=== PATIENT | male | born 1990 | race Caucasian/White ===

== ENCOUNTER 2024-08-14 00:30 | Day surgery (SDC) | payer OTHER, SELFPAY ==
--- NOTE | 2024-08-01 07:22 | P.HP_ITS ---
History of Present Illness History of Present Illness Consent: Risks, benefits, and alternatives have been discussed and questions answered. Patient agrees to proceed with procedure. Chief complaint: Urethral Stricture, Encounter for Vasectomy Narrative: Jose A Roberts is a 33 year old male with longstanding bladder outlet obstructive voiding symptoms refractory to alpha blockers. This is highly suggestive of urethral stricture disease. He opted to forego cystoscopy in the office with plans for cystoscopy and simultaneous urethral dilatation under anesthesia. He also desires vasectomy at the same time. He is aware the risks of these procedures including, but not limited to, recurrent urethral stricture, scrotal hematoma, potential for vasectomy failure. Review of Systems Review of Systems: All systems reviewed & are unremarkable except as noted in HPI and below Meds Home Medications and Allergies Allergies Allergy/AdvReac Type Severity Reaction Status Date / Time No Known Allergies Allergy Mild Verified 07/04/08 14:38 Exam Const: General: no acute distress Resp: Effort & Inspection: normal respiratory effort GI: Inspection: non-distended GI Palp: No abdominal tenderness and No Guarding due to palpation present (GI) Auscultation: normal bowel sounds Assessment and Plan Assessment and plan (1) Encounter for vasectomy: Code(s): Z30.2 - Encounter for sterilization Status: Acute (2) Urethral stricture: Code(s): N35.919 - Unspecified urethral stricture, male, unspecified site Status: Acute Assessment and Plan: * Cystoscopy, possible urethral dilatation * Bilateral vasectomy
[2024-08-06 10:36] VITALS: BMI 32.3
--- NOTE | 2024-08-06 10:36 | PC.NURSE ---
Report to the Outpatient Waiting Room, entrance under the green pavilion located off [facility], at time _0830_ on date _[id number]_. Planned Procedure Time: _1030_.? Time changes happen often and if your time is changed the preop area will call you the afternoon before. - You and your visitor will be asked to self-screen and do not enter if you have any COVID symptoms. Please call surgeon if you need to reschedule. - A mask is optional within the hospital at this time. Patients may have clear liquids (water, carbonated beverages, clear teas, apple juice) until 3 hours prior to surgery with a maximum of 20 ounces. - No food from midnight until time of surgery and no smoking. This includes no chewing gum, candy or mints. Take only the following medications with a SIP of water on the morning of surgery: ____None DO NOT STOP ANY OF YOUR OTHER PRESCRIPTION MEDICATIONS PRIOR TO SURGERY EXCEPT THE FOLLOWING Medications to discontinue per physician ____None Date to take last dose Please no make-up, nail german, hairspray, perfume, deodorant, or body powder the day of surgery.? No jewelry (including any body piercings) or valuables the day of surgery, leave them at home.? Please take a shower or bath the night before, or the morning of, surgery with an antibacterial soap.? Wear comfortable, loose fitting clothing. - Jewelry must be removed prior to entering the operating room.? Rings and piercings that are not removed may be cut off. - The hospital will not accept responsibility for valuables.? - Please leave all valuables, including medications, at home the day of surgery. If you are going home after surgery, a licensed delivery motorcycle driver must drive you home.? - NO public transportation without another adult if you receive anesthesia. - We recommend that an adult stay with you for 24 hours following discharge. - We also recommend that you do not drive, make important decision, drink alcoholic beverages, or take any drugs that were not prescribed by your health care provider for at least 24 hours after your discharge time. Follow any additional instructions given to you from your surgeon. Telephone instructions given to _Klever__and asked if any additional questions and then verbalized understanding. Patient advised to call surgeon office or pre surgery nurse liaison [phone] if any additional questions.
[2024-08-14] VITALS (10 sets, daily range): BP systolic 111–142; BP diastolic 66–100; PULSE 62–85; RESP 12–16; TEMP 36.3–36.5; O2SAT 98–100
--- NOTE | 2024-08-14 06:06 | WPDHPUPDATE1 ---
History and Physical Update Update Date/Time: 08/14/24 06:06 History and Physical has been reviewed, including an updated exam of the patient. There are NO changes in the patient's condition. Risks, benefits, and alternatives have been discussed and questions answered. Patient agrees to proceed with procedure.
--- NOTE | 2024-08-14 09:18 | P.PNAN_ITS ---
Anes - Initial Pre Proc Eval Procedure: Operation Date: 08/14/24 10:30 Proposed Procedures p Cystoscopy, Urethral Dilatation - Tyrone Corona MD s Bilateral Vasectomy - Tyrone Corona MD Date/Time: 08/14/24 09:18 Surgeon: Tyrone Corona MD Pre Op Diagnosis: Urethral Stricture, Encounter for Vasectomy Patient Data Age: 33 Gender: M Height: 1.78 m Weight: 102.3 kg Allergies Allergy/AdvReac Type Severity Reaction Status Date / Time No Known Allergies Allergy Mild Verified 08/14/24 08:52 Home Medications ?Medication ?Instructions ?Recorded ?Confirmed ?Type testosterone cypionate 200 mg/mL 200 mg IM WEEKLY 08/06/24 08/06/24 History intramuscular oil Patient hx anesthesia problems: none Family hx anesthesia problems: none Results Review: All pre-operative results and documents have been reviewed as part of the pre- operative evaluation. [facility] Social History Social History Smoking status: Never smoker Alcohol intake: current Living arrangements: with family Spiritual care concerns: No Anes - Eval Final PreProcedure Day of Procedure 08/14/24 09:18 Patient weight: obese Heart: regular rate and rhythm Lungs: clear to auscultation Airway: Mallampati scale class 1 Neurological: alert and oriented Last oral intake: >/= 8 hours ASA classification: II Emergent: no Anesthetic plan: proceed Anesthesia type and monitoring: general LMA and standard monitoring Results Review: All pre-operative results and documents have been reviewed as part of the pre- operative evaluation. Informed Consent: The patient's anesthetic plan and its attendant risks and benefits were discussed with the patient/family/POA. Questions were solicited and answers provided to the satisfaction of the patient/family/POA.
[2024-08-14] MEDS: LACTATED RINGERS 1,000 ML 30 ML IV CONT (09:31)
[2024-08-14] MEDS: ceFAZolin 2 GM/D5W 50 ML 2 GM/50 ML BAG IVPB (09:36)
[2024-08-14] MEDS: LIDOCAINE 2% GEL UROJET 10 ML PKG MUCOUS MEM (09:36)
[2024-08-14] MEDS: LIDOCAINE 1% LOCAL INJ 10 ML VIAL 4 ML INFILTRATE (09:36)
[2024-08-14] MEDS: KETOROLAC 15 MG/ML VIAL (*BKC) IV PUSH (10:13)
--- NOTE | 2024-08-14 10:18 | W.PM.PROC2 ---
Procedure Note - Detailed Date of Procedure 08/14/24 Pre-op Diagnosis Urethral Stricture, Encounter for Vasectomy Post-op Diagnosis Same Procedure Performed Cystoscopy, urethral dilatation, bilateral vasectomy Surgeon Tyrone Corona MD Anesthesia General Description of Procedure Patient is brought to the operative suite was prepped draped in routine sterile fashion while in dorsal lithotomy position after the uneventful induction of a general anesthetic. Cystoscopy was undertaken with a 16 F flexible cystoscope. He has a moderately constricting bulbous urethral stricture calibrated to approximately 14-16 F. It is dilated over a wire from 12 F to 20 F. Repeat cystoscopy shows no significant urethral injury. The bladder is normal without intravesical foreign body neoplasm. As a single orthotopic ureteral orifice bilaterally. Patient was re-prepped and draped in a routine fashion, while in a supine position. A single incision (approx. 1/4') is made in the median raphe of the scrotum. Each vas deferens is delivered and a short segment excised and send for pathology sectioning. The cut end of the vas deferens are cauterized and spermatic cord fascia is interposed between the cut ends. The vasa are returned to an orthotopic position and the incision is closed with a 4-0 chromic. Pathology Yes Complications No immediate complications Condition Stable Disposition PACU
[2024-08-14] MEDS: oxyCODONE HCL (*CRX) 5 MG TAB IR PO (11:55)
== END 2024-08-14 12:30 | disposition home or self-care (01) ==
PROVIDERS: Visit Provider Urology
PROC: 0T7D8ZZ Dilation of Urethra, Via Natural or Artificial Opening Endoscopic (ICD-10-PCS; CPT 52281; principal; 2024-08-14 10:30)
PROC: (CPT 55250; 2024-08-14 10:30)
DX: Z30.2 Encounter for sterilization (principal); N35.912 Unspecified bulbous urethral stricture, male; E66.9 Obesity, unspecified; Z68.32 Body mass index [BMI] 32.0-32.9, adult
CPT/HCPCS: 52281; 55250; 88300; A9270; C1769; J0690; J1100; J1885; J2003; J2250; J2405; J2704; J3010; J7030; J7120